=== PATIENT | male | born 1995 | race Caucasian/White ===

== ENCOUNTER 2025-07-22 14:38 | Inpatient (IN) | payer OTHER ==
[~2025-07-22] VITALS: Ht 180.3 cm; Wt 102.1 kg
[2025-07-22] MEDS ORDERED: CYCLOBENZAPRINE HCL 10 MG TABLET PO PRN (18:30)
[2025-07-22] MEDS ORDERED: OxyCODONE HCL 10 MG IR TABLET PO PRN (18:30)
[2025-07-22] MEDS ORDERED: BISACODYL 10 MG RECTAL RECTAL SUPPOSITORY PR PRN (18:30)
[2025-07-22 18:47] VITALS: BP 130/80; PULSE 108; RESP 19; TEMP 98.4; O2SAT 100
[2025-07-22 20:04] VITALS: BP 128/75; PULSE 97; RESP 18; TEMP 98.8; O2SAT 97
[2025-07-22] MEDS: SENNOSIDES 8.6 MG TABLET PO SCH (21:00)
[2025-07-22] MEDS: POLYETHYLENE GLYCOL 3350 17 GM PACKET PO SCH (21:00)
[2025-07-22] MEDS: ETHYL ALCOHOL 62% ANTISEPTIC NASAL SANITIZER 0.6 ML AMPUL NASAL SCH (21:21)
[2025-07-22] MEDS: APIXABAN 5 MG TABLET PO SCH (21:21)
[2025-07-22] MEDS: MELATONIN 3 MG TABLET PO PRN (21:21)
[2025-07-22] MEDS: ACETAMINOPHEN 325 MG TABLET PO SCH (21:21)
[2025-07-23] VITALS (8 sets, daily range): BP systolic 128–139; BP diastolic 67–79; PULSE 87–109; RESP 17–19; TEMP 98.6–99; O2SAT 96–99
[2025-07-23] MEDS: OxyCODONE HCL 5 MG IR TABLET PO PRN (02:28)
[2025-07-23] MEDS: LEVOTHYROXINE SODIUM 150 MCG TABLET PO SCH (07:01)
[2025-07-23 07:21] LABS: PLATELET COUNT (AUTO) 676 K/uL (150-450); RED BLOOD CELL COUNT(AUTO) 2.94 MIL/uL (4.50-5.90); RED CELL DISTRIBUTION WIDTH 15.1 % (11.5-14.5); WHITE BLOOD COUNT (AUTO) 9.4 K/uL (4.5-11.0)
[2025-07-23 07:38] LABS: ASPARTATE AMINOTRANSFERASE 57 U/L (15-37); CALCIUM, TOTAL 8.9 mg/dL (8.8-10.5); CREATININE 0.64 mg/dL (0.60-1.30); GLOMERULAR FILTR. RATE CALC > 60 mL/min (>60); GLUCOSE,RANDOM 95 mg/dL (70-110); SODIUM SERUM 134 mmol/L (136-145); TOTAL PROTEIN, SERUM 7.4 g/dL (6.4-8.2); UREA NITROGEN, BLOOD 14 mg/dL (7-18)
[2025-07-23] MEDS: ESCITALOPRAM OXALATE 10 MG TABLET PO SCH (08:14)
[2025-07-23] MEDS: NICOTINE 7 MG/24 HOUR PATCH TD SCH (08:14)
[2025-07-24 06:06] VITALS: BP 127/78; PULSE 86; RESP 18; TEMP 98.6; O2SAT 95
[2025-07-24] MEDS: LEVOTHYROXINE SODIUM 150 MCG TABLET PO SCH (06:09)
[2025-07-24 08:00] VITALS: BP 129/74; PULSE 78; RESP 17; TEMP 98.1; O2SAT 100
[2025-07-24 20:05] VITALS: BP 139/83; PULSE 97; RESP 16; TEMP 99.5; O2SAT 96
[2025-07-24 21:05] VITALS: TEMP 98.6
[2025-07-24 21:28] VITALS: O2SAT 96
[2025-07-25 09:00] VITALS: BP 108/66; PULSE 99; RESP 18; TEMP 98.8; O2SAT 99
[2025-07-25 20:00] VITALS: BP 126/72; PULSE 98; RESP 20; TEMP 99; O2SAT 97
[2025-07-26 06:24] VITALS: TEMP 98.2
[2025-07-26 08:02] VITALS: BP 134/85; PULSE 92; RESP 18; TEMP 98.8; O2SAT 96
[2025-07-26 10:32] VITALS: O2SAT 96
[2025-07-26 17:12] VITALS: BP 117/80; PULSE 86; RESP 18; TEMP 98.8; O2SAT 96
[2025-07-26] MEDS: INFLUENZA VIRUS VACCINE TVS (6MO+) 2025-26/PF 45 MCG/0.5 ML SYRINGE IM. ONE (19:52)
[2025-07-26 20:02] VITALS: BP 126/69; PULSE 93; RESP 18; TEMP 98.8; O2SAT 96
[2025-07-27 00:05] VITALS: O2SAT 96
[2025-07-27 08:00] VITALS: BP 128/79; PULSE 87; RESP 18; TEMP 98.8; O2SAT 96
[2025-07-27 20:00] VITALS: BP 133/75; PULSE 86; RESP 18; TEMP 98.8; O2SAT 96
[2025-07-28 07:20] LABS: RED BLOOD CELL COUNT(AUTO) 3.37 MIL/uL (4.50-5.90); RED CELL DISTRIBUTION WIDTH 15.5 % (11.5-14.5); WHITE BLOOD COUNT (AUTO) 7.7 K/uL (4.5-11.0)
[2025-07-28 07:21] VITALS: BP 123/72; PULSE 84; RESP 18; TEMP 98.6; O2SAT 97
[2025-07-28 07:29] LABS: PLATELET COUNT (AUTO) 780 K/uL (150-450)
[2025-07-28 07:38] LABS: ASPARTATE AMINOTRANSFERASE 55 U/L (15-37); CALCIUM, TOTAL 9.0 mg/dL (8.8-10.5); CREATININE 0.75 mg/dL (0.60-1.30); GLOMERULAR FILTR. RATE CALC > 60 mL/min (>60); GLUCOSE,RANDOM 86 mg/dL (70-110); SODIUM SERUM 137 mmol/L (136-145); TOTAL PROTEIN, SERUM 7.8 g/dL (6.4-8.2); UREA NITROGEN, BLOOD 13 mg/dL (7-18)
[2025-07-28 08:21] VITALS: O2SAT 97
[2025-07-28] MEDS: ASPIRIN 81 MG CHEWABLE TABLET PO SCH (13:40)
[2025-07-28 20:00] VITALS: BP 123/89; PULSE 93; RESP 18; TEMP 98.6; O2SAT 96
[2025-07-29 08:00] VITALS: BP 124/72; PULSE 90; RESP 18; TEMP 98.6; O2SAT 95
[2025-07-29] MEDS: APIXABAN 5 MG TABLET PO SCH (08:28)
[2025-07-29 11:20] VITALS: O2SAT 95
[2025-07-29 20:31] VITALS: BP 131/80; PULSE 94; RESP 16; TEMP 98.8; O2SAT 98
[2025-07-29 23:17] VITALS: O2SAT 98
[2025-07-30 07:23] LABS: PLATELET COUNT (AUTO) 729 K/uL (150-450); RED BLOOD CELL COUNT(AUTO) 3.45 MIL/uL (4.50-5.90); RED CELL DISTRIBUTION WIDTH 15.0 % (11.5-14.5); WHITE BLOOD COUNT (AUTO) 5.2 K/uL (4.5-11.0)
[2025-07-30 09:48] VITALS: O2SAT 98
[2025-07-30 09:49] VITALS: BP 128/83; PULSE 84; RESP 19; TEMP 98; O2SAT 100
[2025-07-30 19:59] VITALS: BP 137/80; PULSE 89; RESP 16; TEMP 98.1; O2SAT 100
[2025-07-31] MEDS ORDERED: LEVO125T95 PO (03:07)
[2025-07-31] MEDS ORDERED: NICO-800 TD ×2 (03:07→14:16)
[2025-07-31] MEDS ORDERED: APIX5TAB PO ×2 (03:07→14:16)
[2025-07-31] MEDS ORDERED: TRAZ-252 PO ×2 (03:07→14:16)
[2025-07-31] MEDS ORDERED: ASPI-1450 PO ×2 (03:07→14:16)
[2025-07-31] MEDS ORDERED: ESCI-8 PO ×2 (03:07→14:16)
[2025-07-31 04:51] VITALS: BP 128/79; PULSE 91; RESP 18; TEMP 98.3; O2SAT 99
[2025-07-31 08:00] VITALS: BP 119/71; PULSE 76; RESP 19; TEMP 97.7; O2SAT 98
[2025-07-31] MEDS ORDERED: POLY17PO62 PO (14:16)
[2025-07-31] MEDS ORDERED: FAMO20 PO (14:16)
[2025-07-31] MEDS ORDERED: ACET-3862 PO (14:16)
[2025-07-31] MEDS ORDERED: LEVO150 PO (14:16)
[2025-07-31 20:00] VITALS: BP 133/80; PULSE 91; RESP 18; TEMP 98.6; O2SAT 99
[2025-08-01 08:00] VITALS: BP 122/72; PULSE 64; RESP 19; TEMP 97.1; O2SAT 97
== END 2025-08-01 12:42 | disposition home or self-care (01) | DRG 559 ==
LOC: 2WR 18:24
PROVIDERS: ADMIT Physical Medicine & Rehabilitation; ATTEND Physical Medicine & Rehabilitation
DX: S32.591D Other specified fracture of right pubis, subsequent encounter for fracture with routine healing (principal); I26.93 Single subsegmental thrombotic pulmonary embolism without acute cor pulmonale; E87.1 Hypo-osmolality and hyponatremia; Z74.09 Other reduced mobility; E03.9 Hypothyroidism, unspecified; F17.200 Nicotine dependence, unspecified, uncomplicated; F41.9 Anxiety disorder, unspecified; K76.0 Fatty (change of) liver, not elsewhere classified; M21.372 Foot drop, left foot; D64.9 Anemia, unspecified; F51.04 Psychophysiologic insomnia; D75.839 Thrombocytosis, unspecified; G57.30 Lesion of lateral popliteal nerve, unspecified lower limb; F32.A Depression, unspecified; G31.84 Mild cognitive impairment of uncertain or unknown etiology; I95.9 Hypotension, unspecified; Z95.828 Presence of other vascular implants and grafts; Z79.899 Other long term (current) drug therapy; S32.059D Unspecified fracture of fifth lumbar vertebra, subsequent encounter for fracture with routine healing; S32.2XXD Fracture of coccyx, subsequent encounter for fracture with routine healing; S82.832D Other fracture of upper and lower end of left fibula, subsequent encounter for closed fracture with routine healing; S83.512D Sprain of anterior cruciate ligament of left knee, subsequent encounter; S84.12XD Injury of peroneal nerve at lower leg level, left leg, subsequent encounter; S93.432D Sprain of tibiofibular ligament of left ankle, subsequent encounter
CPT/HCPCS: 80053; 85025; 87081; 92507; 92523; 97110; 97116; 97163; 97167; 97530; 97535; 99366